=== PATIENT | female | born 1960 | race Caucasian/White ===

== ENCOUNTER 2017-08-28 12:32 | Emergency (ER) | payer OTHER ==
[2017-08-28 12:37] VITALS: BP 146/96; PULSE 60; TEMP 97.9
[2017-08-28] MEDS ORDERED: methylPREDNISolone NA SUCC 125 MG/2 ML VIAL IVPUSH ONE (12:49)
--- NOTE | 2017-08-28 12:53 | PDOC ---
History of Present Illness - General Chief Complaint: Allergic Reaction Stated Complaint: ALLERGIC REACTION Time Seen by Provider: 08/28/17 12:53 Past History - Past Medical History Allergies/Adverse Reactions: Allergies Allergy/AdvReac Type Severity Reaction Status Date / Time Iodinated Contrast- Oral and Allergy Verified 08/28/17 12:33 IV Dye Home Medications: Ambulatory Orders Prednisone [Prednisone 50 MG TABLETS] 50 mg PO DAILY #3 tablet 08/28/17 COPD: No Diabetes: Yes HTN: Yes - Suicide/Smoking/Psychosocial Hx Smoking History: Never smoked Have you smoked in the past 12 months: No Number of Cigarettes Smoked Daily: 20 Information on smoking cessation initiated: Yes 'Breaking Loose' booklet given: 08/28/17 Hx Alcohol Use: No Drug/Substance Use Hx: No Substance Use Type: None *Physical Exam - Vital Signs Last Vital Signs Temp Pulse Resp BP Pulse Ox 97.9 F 60 18 146/96 100 08/28/17 12:34 08/28/17 12:34 08/28/17 12:34 08/28/17 12:34 08/28/17 12:34 ED Treatment Course - Medications Given in the ED: ED Medications Discontinued Medications Generic Name Dose Route Start Last Admin Trade Name Pily PRN Reason Stop Dose Admin Diphenhydramine HCl 50 mg 08/28/17 12:48 08/28/17 12:49 Benadryl Injection - IVPB 08/28/17 12:49 50 mg NOW ONE Administration Methylprednisolone Sodium Succinate 125 mg 08/28/17 12:49 08/28/17 12:49 Solu-Medrol - IVPUSH 08/28/17 12:50 125 mg NOW ONE Administration *DC/Admit/Observation/Transfer Diagnosis at time of Disposition: Allergic reaction Qualifiers: Encounter type: initial encounter Qualified Code(s): T78.40XA - Allergy, unspecified, initial encounter - Discharge Dispostion Disposition: HOME Condition at time of disposition: Improved Admit: No - Prescriptions Prescriptions: Prednisone [Prednisone 50 MG TABLETS] 50 mg PO DAILY #3 tablet - Referrals - Patient Instructions Additional Instructions: You had an allergic reaction to the contrast dye. Please tell them in the future before receiving IV contrast that you have an allergy. Please take your medicine for the next three days. Your sugars may be high on the steroids. Please return if you have new or worsening symptoms. - Post Discharge Activity
--- NOTE | 2017-08-28 13:08 | PDOC ---
Attending Attestation - HPI HPI: 08/28/17 14:26 Patient is a 56 year old female with a significant past medical history of Diabetes, who presents to the ED with complaints of welts s/p allergic reaction. Patient reports going in for abdominal CT with contrast when she began to have an allergic reaction to the PO contrast. Patient states he began to become itchy as well as develop welts on her arms bilaterally. Solumedrol, and benadryl. Patient is here for revaluation of allergic reaction. Patient states CT scan was for colonoscopy procedure. Denies fever, chills. Denies nausea, vomiting. Denies any other symptoms. Allergies: Iodinated contrast. Social history: No smokings, No alcohol, No illicit drugs. Surgical history: None PMD: None - Physicial Exam PE: 08/28/17 14:26 Vitals: Triage Vital signs reviewed General Appearance: no acute distress, well nourished well developed Chest Wall: Nontender Cardiac: Regular rate and rhythym, no murmurs, no rubs, no gallops Lungs: Clear to auscultation bilateral, good air movement bilaterally Abdomen: Soft, non distended, normal bowel sounds, non tender to palpation Extremities: Full range of motion to all extremities, no cyanosis, clubbing, or edema Skin: +Urticarial rash Warm and dry, no petechiae Neuro: AOX3; Cranial Nerves 2-12 grossly intact, Strength intact to all extremities, Sensation intact to all extremities, gait normal Psych: Normal mood, normal affect - Medical Decision Making 08/28/17 14:27 Documentation prepared by Asad Rivers, acting as medical education manager for Edmond Camp MD, MD/DO. <Asad Rivers - Last Filed: 08/28/17 14:26> - Resident Resident Name: Jenny Curtis - ED Attending Attestation I have performed the following: I have examined & evaluated the patient, The case was reviewed & discussed with the resident, I agree w/resident's findings & plan, Exceptions are as noted - Medical Decision Making 08/28/17 13:26 Well-appearing no apparent distress history and examination consistent with mild urticaria reaction to IV contrast. Upon arrival to the ED patient given Benadryl slight Medrol feeling much better no respiratory involvement. We'll observe and reassess. 08/28/17 16:26 Reevaluation:'s itching and urticaria resolved after Benadryl Solu-Medrol no respiratory distress Patient will be discharged with 3 day course of prednisone Benadryl and follow- up with her primary care provider Findings, the need for follow-up, strict return instructions discussed with patient. <Edmond Camp - Last Filed: 08/28/17 16:26>
--- NOTE | 2017-08-31 11:33 | EKG ---
Test Reason : Blood Pressure : / mmHG Vent. Rate : 055 BPM Atrial Rate : 055 BPM P-R Int : 136 ms QRS Dur : 070 ms QT Int : 436 ms P-R-T Axes : 056 020 022 degrees QTc Int : 417 ms SINUS BRADYCARDIA LOW VOLTAGE QRS CANNOT RULE OUT ANTERIOR INFARCT , AGE UNDETERMINED ABNORMAL ECG WHEN COMPARED WITH ECG OF 25-APR-2017 14:44, SINUS RHYTHM HAS REPLACED ELECTRONIC VENTRICULAR PACEMAKER Confirmed by ANTHONY ORTIZ, JOSE ([id number]) on 08/31/2017 11:33:21 AM Referred By: Confirmed By:JOSE CRUZ MD
== END 2017-08-28 14:24 | disposition home or self-care (01) ==
LOC: JER 12:32
PROC: 3E033GC Introduction of Other Therapeutic Substance into Peripheral Vein, Percutaneous Approach (ICD-10-PCS; principal; 2017-08-28)
DX: T78.40XA Allergy, unspecified, initial encounter (principal); I10 Essential (primary) hypertension; E11.9 Type 2 diabetes mellitus without complications; Z87.891 Personal history of nicotine dependence
CPT/HCPCS: 93005; 93010; 96374; 96375; 99282-25

== ENCOUNTER 2018-08-17 22:28 | Emergency (ER) | payer OTHER ==
[2018-08-17 22:34] VITALS: BMI 28.5
--- NOTE | 2018-08-17 22:59 | PDOC ---
History of Present Illness - General Chief Complaint: Blood Pressure Problem Stated Complaint: BLOOD PRESSURE PROBLEM Time Seen by Provider: 08/17/18 22:59 Past History - Past Medical History Allergies/Adverse Reactions: Allergies Allergy/AdvReac Type Severity Reaction Status Date / Time Iodinated Contrast- Oral and Allergy Verified 08/17/18 22:32 IV Dye Home Medications: Ambulatory Orders Prednisone [Prednisone 50 MG TABLETS] 50 mg PO DAILY #3 tablet 08/28/17 COPD: No Diabetes: Yes HTN: Yes - Suicide/Smoking/Psychosocial Hx Smoking History: Current every day smoker Have you smoked in the past 12 months: No Number of Cigarettes Smoked Daily: 20 Information on smoking cessation initiated: No 'Breaking Loose' booklet given: 08/28/17 Hx Alcohol Use: No Drug/Substance Use Hx: No Substance Use Type: None *Physical Exam - Vital Signs Last Vital Signs Temp Pulse Resp BP Pulse Ox 98.7 F 92 H 18 173/84 H 99 08/17/18 22:32 08/17/18 22:32 08/17/18 22:32 08/17/18 22:32 08/17/18 22:32 Moderate Sedation - Procedure Monitoring Vital Signs: Procedure Monitoring Vital Signs Temperature 98.7 F 08/17/18 22:32 Pulse Rate 92 H 08/17/18 22:32 Respiratory Rate 18 08/17/18 22:32 Blood Pressure 173/84 H 08/17/18 22:32 O2 Sat by Pulse Oximetry (%) 99 08/17/18 22:32 *DC/Admit/Observation/Transfer - Referrals Referrals: Reji Ferrell MD [Primary Care Provider] - - Patient Instructions - Post Discharge Activity
[2018-08-17] MEDS ORDERED: ACETAMINOPHEN 1000 MG/100 ML VIAL (NON FORMULARY) IVPB ONE (23:32)
[2018-08-17] MEDS ORDERED: METOCLOPRAMIDE HCL INJECTION 10 MG/2 ML VIAL IVPUSH ONE (23:32)
--- NOTE | 2018-08-17 23:32 | PDOC ---
Attending Attestation - Resident Resident Name: Soni Vyas - ED Attending Attestation I have performed the following: I have examined & evaluated the patient, The case was reviewed & discussed with the resident, I agree w/resident's findings & plan, Exceptions are as noted - HPI HPI: 08/18/18 00:43 57yo female with hx of DM and HTN with cp from her back to her front since yesterday, elevated BP tonight, and a posterior headache. Pt denies neck pain. No pleuritic component to the pain. Pt is a smoker. Pt denies f/c. No rhinorrhea or sore throat. No abd pain. No n/v/d. No dysuria. Pt denies paresthesias. No blurred vision or change in vision. No other complaints. - Physicial Exam PE: 08/18/18 00:44 Gen: aaox3, appears uncomfortable, hypertensive heent: PERRL, EOMI, MMM neck: supple heart: +s1s2 reg lungs: cta b/l abd: soft, nt/nd +bs Ext: no c/c/e neuro: cn ii-xii grossly intact, no focal neuro deficits, muscle strenght 5/5 UE and LE, sensation intact - Medical Decision Making 08/17/18 23:31 I, Dr. Tiny Roldan, DO, attest that this document has been prepared under my direction and personally reviewed by me in its entirety. I further attest, that it accurately reflects all work, treatment, procedures and medical decision -making performed by me. 08/18/18 00:46 a/p: 57yo female with elevated BP tonight and headache/chest pain -concern for ACS - will send trops, ekg, cxr -will give asa -low suspicion for dissection given equal BP in both arms -will obtain cxr to eval mediastinal size -will obtain head ct given elevated BP and headache, though neuro intact -will medicate -will monitor and reassess 08/18/18 01:55 trop negative mildly elevated TSH, free T4 sent pending head ct and cxr Heart Score/ECG Review - ECG Intrepretation Comment:: 08/18/18 00:45 sinus at 62, nl axis, nl interval, t wave inversions III that are nonspecific, no acute st/t wave findings
[2018-08-17] MEDS ORDERED: METOCLOPRAMIDE HCL INJECTION 10 MG/2 ML VIAL ONE (23:43)
[2018-08-17] MEDS ORDERED: ACETAMINOPHEN INJECTION 100 ML IVPB ONE (23:43)
--- NOTE | 2018-08-17 23:43 | PDOC ---
History of Present Illness - General Chief Complaint: Blood Pressure Problem Stated Complaint: BLOOD PRESSURE PROBLEM Time Seen by Provider: 08/17/18 22:59 - History of Present Illness Initial Comments: 08/17/18 23:41 The patient is a 57 year old female with a PMH of HTN, DMII that presented to the hospital complaining of headache and back pain radiating to her chest. The patient checked her BP in the evening at home and systolic was in 160s. Usually it is 130-140. She started experiencing headache that improved here in ED. It was localized to the back of her head. She is also complaining of upper back pain that started yesterday, sharp, radiating to mid chest, worse with lying flat and associated with heartburn. She denies SOB, palpitations, dizziness, weakness, vision problems, numbness, tingling. She denies dyspnea with exertion. She doesn't have a watch inspector final movement but her is waiting for approval to get ECHO that was recommended by hear PCP. The patient admits to non compliance with medications. Past History - Past Medical History Allergies/Adverse Reactions: Allergies Allergy/AdvReac Type Severity Reaction Status Date / Time Iodinated Contrast- Oral and Allergy Verified 08/17/18 22:32 IV Dye Home Medications: Ambulatory Orders Prednisone [Prednisone 50 MG TABLETS] 50 mg PO DAILY #3 tablet 08/28/17 COPD: No Diabetes: Yes HTN: Yes - Suicide/Smoking/Psychosocial Hx Smoking History: Current every day smoker Have you smoked in the past 12 months: No Number of Cigarettes Smoked Daily: 20 Information on smoking cessation initiated: No 'Breaking Loose' booklet given: 08/28/17 Hx Alcohol Use: No Drug/Substance Use Hx: No Substance Use Type: None Review of Systems - Review of Systems Able to Perform ROS?: Yes Constitutional: No: Symptoms Reported HEENTM: No: Symptoms Reported, Blurred Vision, Double Vision Respiratory: No: Symptoms reported, Cough Cardiac (ROS): Yes: See HPI. No: Symptoms Reported, Edema, Irregular Heart Rate , Lightheadedness, Palpitations, Syncope, Chest Tightness ABD/GI: No: Symptoms Reported : No: Symptoms Reported Musculoskeletal: Yes: Symptoms Reported, Back Pain Neurological: Yes: Symptoms reported, Headache *Physical Exam - Vital Signs Last Vital Signs Temp Pulse Resp BP Pulse Ox 97.4 F L 67 18 132/88 97 08/18/18 00:36 08/18/18 00:36 08/18/18 00:36 08/18/18 00:36 08/18/18 00:36 - Physical Exam General Appearance: Yes: Nourished, Appropriately Dressed HEENT: positive: EOMI, MARIYA Respiratory/Chest: positive: Lungs Clear, Normal Breath Sounds Cardiovascular: positive: Regular Rhythm, Regular Rate, S1, S2. negative: Murmur Musculoskeletal: positive: Normal Inspection. negative: Vertebral Tenderness Extremity: positive: Normal Inspection, Normal Range of Motion Neurologic: positive: crossing tender II-XII NML intact, Fully Oriented, Alert, Normal Response, Motor Strength 5/5. negative: Facial Droop, Numbness Heart Score/ECG Review - History History: Slightly suspicious - Age Age: 45-65 - Risk Factors Risk Factors Heart Score: Yes Hx Hypertension, Yes Hx Diabetes Moderate Sedation - Procedure Monitoring Vital Signs: Procedure Monitoring Vital Signs Temperature 97.4 F L 08/18/18 00:36 Pulse Rate 67 08/18/18 00:36 Respiratory Rate 18 08/18/18 00:36 Blood Pressure 132/88 08/18/18 00:36 O2 Sat by Pulse Oximetry (%) 97 08/18/18 00:36 ED Treatment Course - LABORATORY CBC & Chemistry Diagram: 08/18/18 00:00 08/18/18 00:00 - ADDITIONAL ORDERS Additional order review: Laboratory Results 08/18/18 08/18/18 08/18/18 00:00 00:00 00:00 PT with INR INR PTT (Actin FS) Sodium 136 Potassium 3.9 Chloride 101 Carbon Dioxide 27 Anion Gap 9 BUN 18 Creatinine 0.9 Creat Clearance w eGFR > 60 Random Glucose 139 H Calcium 9.7 Magnesium 1.9 Total Bilirubin 0.3 AST 19 ALT 29 Alkaline Phosphatase 72 Creatine Kinase 101 Troponin I < 0.02 B-Natriuretic Peptide 142.1 H Total Protein 8.2 Albumin 4.4 TSH 8.23 H Free T4 0.97 Urine Color Urine Appearance Urine pH Ur Specific [place] Urine Protein Urine Glucose (UA) Urine Ketones Urine Blood Urine Nitrite Urine Bilirubin Urine Urobilinogen Ur Leukocyte Esterase Urine WBC (Auto) Urine RBC (Auto) Ur Epithelial Cells Urine Bacteria Urine Mucus 08/18/18 08/17/18 00:00 23:37 PT with INR 12.00 INR 1.02 PTT (Actin FS) 30.4 Sodium Potassium Chloride Carbon Dioxide Anion Gap BUN Creatinine Creat Clearance w eGFR Random Glucose Calcium Magnesium Total Bilirubin AST ALT Alkaline Phosphatase Creatine Kinase Troponin I B-Natriuretic Peptide Total Protein Albumin TSH Free T4 Urine Color Straw Urine Appearance Clear Urine pH 6.0 Ur Specific [place] 1.006 L Urine Protein Negative Urine Glucose (UA) Negative Urine Ketones Negative Urine Blood Negative Urine Nitrite Negative Urine Bilirubin Negative Urine Urobilinogen Negative Ur Leukocyte Esterase 1+ H Urine WBC (Auto) 7 Urine RBC (Auto) 1 Ur Epithelial Cells Rare Urine Bacteria Rare Urine Mucus Rare 08/18/18 00:00 RBC 4.33 MCV 89.6 MCHC 36.1 H RDW 12.5 MPV 8.3 Neutrophils % 43.6 Lymphocytes % 46.9 H Monocytes % 5.6 Eosinophils % 3.7 Basophils % 0.2 - Medications Given in the ED: ED Medications Discontinued Medications Generic Name Dose Route Start Last Admin Trade Name Freq PRN Reason Stop Dose Admin Acetaminophen 1,000 mg 08/17/18 23:32 08/18/18 00:18 Ofirmev Injection - IVPB 08/17/18 23:33 1,000 mg ONCE ONE Administration Famotidine/Sodium Chloride 20 mg in 50 mls @ 100 mls/hr 08/18/18 00:17 01:29 Pepcid 20 Mg Premixed Ivpb - IVPB 08/18/18 00:46 100 mls/hr ONCE ONE Administration Metoclopramide HCl 10 mg 08/17/18 23:32 08/18/18 00:18 Reglan Injection - IVPUSH 08/17/18 23:33 10 mg ONCE ONE Administration Medical Decision Making - Medical Decision Making 08/18/18 00:53 The patient presented with elevated BP, headache and back pain radiating to her chest. Differectial diagnosis includes: stroke, ACS, dissection of aorta. We ordered CBC, CMP, cardiac profile, EKG, CXR. We will also repeat BP. 08/18/18 00:56 BP normalized without medications; 132/88, HR 67. Waiting for EKG 08/18/18 02:32 TSH elevated, 8.23, normal T4, will recommend f/u as outpatient. 08/18/18 03:02 CT head negative for acute pathology. The patient will be DC home with recommendation to f/u with her PCP next week as well as Psychiatry for anxiety. *DC/Admit/Observation/Transfer Diagnosis at time of Disposition: Uncontrolled hypertension - Discharge Dispostion Disposition: HOME Condition at time of disposition: Stable - Referrals Referrals: Reji Ferrell MD [Primary Care Provider] - Andrey Carrillo NP [Nurse Practitioner] - - Patient Instructions Printed Discharge Instructions: DI for High Blood Pressure, How to Monitor Your Blood Pressure at Home Additional Instructions: You were evaluate in emergency room for elevated blood pressure and chest pain. Your results (labwork, CT of the head) were negative. Continue to take your home medications everyday and check your blood pressure at home. Please follow up with your primary care physician and Psychiatrist. If you have severe chest pain, headache, weakness or worsening of any of your symptoms, please come back to Emergency Room as soon as possible. - Post Discharge Activity
[2018-08-17 23:49] LABS: URINE APPEARANCE CLEAR; URINE BILIRUBIN NEGATIVE (<2.0 mg/dL); URINE COLOR STRAW; URINE GLUCOSE (UA) NEGATIVE (NEGATIVE); URINE KETONE NEGATIVE (NEGATIVE); URINE LEUK ESTERASE 1+ (NEGATIVE); URINE NITRITE NEGATIVE (NEGATIVE); URINE PROTEIN NEGATIVE (NEGATIVE); URINE UROBILINOGEN NEGATIVE mg/dL (0.2-1.0)
[2018-08-17 23:51] LABS: EPI CELLS RARE /HPF (FEW); URINE BACTERIA RARE /hpf (NONE SEEN); URINE MUCUS RARE
[2018-08-18] MEDS ORDERED: FAMOTIDINE 20 MG/50 ML IVPB 20 MG/50 ML MG IVPB ONE ×2 (00:17→01:37)
[2018-08-18 01:01] LABS: INR 1.02 (0.83-1.09)
[2018-08-18 01:03] LABS: ACTIVATED PTT 30.4 SECONDS (25.2-36.5)
[2018-08-18 01:18] LABS: ALBUMIN 4.4 g/dl (3.4-5.0); ALK PHOS 72 U/L (45-117); ANION GAP 9 MMOL/L (8-16); BILIRUBIN,TOTAL 0.3 mg/dL (0.2-1); BLOOD UREA NITROGEN 18 mg/dL (7-18); CALCIUM 9.7 mg/dL (8.5-10.1); CHLORIDE 101 mmol/L (98-107); CO2 27 mmol/L (21-32); CREATININE 0.9 mg/dL (0.55-1.3); GLUCOSE,RANDOM 139 mg/dL (74-106); MAGNESIUM 1.9 mg/dL (1.8-2.4); POTASSIUM 3.9 mmol/L (3.5-5.1); SGOT/AST 19 U/L (15-37); SGPT/ALT 29 U/L (13-61); SODIUM 136 mmol/L (136-145); TOT PROT 8.2 g/dl (6.4-8.2)
[2018-08-18 01:56] LABS: BASO % 0.2 % (0-2.0); EOS % 3.7 % (0-4.5); HEMATOCRIT 38.8 % (32.4-45.2); LYMPH % 46.9 % (8-40); MCH 32.4 pg (25.7-33.7); MCHC 36.1 g/dl (32.0-36.0); MEAN CELL VOLUME 89.6 fl (80-96); MEAN PLT VOLUME 8.3 fl (7.5-11.1); MONO % 5.6 % (3.8-10.2); NEUT % 43.6 % (42.8-82.8); PLATELET COUNT 305 K/MM3 (134-434); RBC 4.33 M/mm3 (3.60-5.2); RDW 12.5 % (11.6-15.6); WHITE BLOOD COUNT 7.7 K/mm3 (4.0-10.0)
--- NOTE | 2018-08-18 03:02 | PDOC ---
*Physical Exam - Vital Signs Last Vital Signs Temp Pulse Resp BP Pulse Ox 97.4 F L 67 18 132/88 97 08/18/18 00:36 08/18/18 00:36 08/18/18 00:36 08/18/18 00:36 08/18/18 00:36 ED Treatment Course - LABORATORY CBC & Chemistry Diagram: 08/18/18 00:00 08/18/18 00:00 - ADDITIONAL ORDERS Additional order review: Laboratory Results 08/18/18 08/18/18 08/18/18 00:00 00:00 00:00 PT with INR INR PTT (Actin FS) Sodium 136 Potassium 3.9 Chloride 101 Carbon Dioxide 27 Anion Gap 9 BUN 18 Creatinine 0.9 Creat Clearance w eGFR > 60 Random Glucose 139 H Calcium 9.7 Magnesium 1.9 Total Bilirubin 0.3 AST 19 ALT 29 Alkaline Phosphatase 72 Creatine Kinase 101 Troponin I < 0.02 B-Natriuretic Peptide 142.1 H Total Protein 8.2 Albumin 4.4 TSH 8.23 H Free T4 0.97 Urine Color Urine Appearance Urine pH Ur Specific [place] Urine Protein Urine Glucose (UA) Urine Ketones Urine Blood Urine Nitrite Urine Bilirubin Urine Urobilinogen Ur Leukocyte Esterase Urine WBC (Auto) Urine RBC (Auto) Ur Epithelial Cells Urine Bacteria Urine Mucus 08/18/18 08/17/18 00:00 23:37 PT with INR 12.00 INR 1.02 PTT (Actin FS) 30.4 Sodium Potassium Chloride Carbon Dioxide Anion Gap BUN Creatinine Creat Clearance w eGFR Random Glucose Calcium Magnesium Total Bilirubin AST ALT Alkaline Phosphatase Creatine Kinase Troponin I B-Natriuretic Peptide Total Protein Albumin TSH Free T4 Urine Color Straw Urine Appearance Clear Urine pH 6.0 Ur Specific [place] 1.006 L Urine Protein Negative Urine Glucose (UA) Negative Urine Ketones Negative Urine Blood Negative Urine Nitrite Negative Urine Bilirubin Negative Urine Urobilinogen Negative Ur Leukocyte Esterase 1+ H Urine WBC (Auto) 7 Urine RBC (Auto) 1 Ur Epithelial Cells Rare Urine Bacteria Rare Urine Mucus Rare 08/18/18 00:00 RBC 4.33 MCV 89.6 MCHC 36.1 H RDW 12.5 MPV 8.3 Neutrophils % 43.6 Lymphocytes % 46.9 H Monocytes % 5.6 Eosinophils % 3.7 Basophils % 0.2 - Medications Given in the ED: ED Medications Discontinued Medications Generic Name Dose Route Start Last Admin Trade Name Freq PRN Reason Stop Dose Admin Acetaminophen 1,000 mg 11/30/18 23:32 08/18/18 00:18 Ofirmev Injection - IVPB 08/17/18 23:33 1,000 mg ONCE ONE Administration Famotidine/Sodium Chloride 20 mg in 50 mls @ 100 mls/hr 08/18/18 00:17 01:29 Pepcid 20 Mg Premixed Ivpb - IVPB 08/18/18 00:46 100 mls/hr ONCE ONE Administration Metoclopramide HCl 10 mg 08/17/18 23:32 08/18/18 00:18 Reglan Injection - IVPUSH 08/17/18 23:33 10 mg ONCE ONE Administration Medical Decision Making - Medical Decision Making 08/18/18 03:01 Received pt on signout. She is to be reevaluated and discharged home if stable. Patient Name: SHONA SANCHEZ THIS IS A PRELIMINARY REPORT FROM [facility] DATE OF SERVICE: 2018-08-18 02:07:37 IMAGES: 133 EXAM: HEAD CT WITHOUT CONTRAST HISTORY: 57-year-old female headache. COMPARISON: None. FINDINGS: No acute intracranial hemorrhage mass effect or midline shift. The ventricles sulci and basilar cisterns have a normal size and contour. Mild nonspecific periventricular predominant low density throughout the deep white matter is most likely due to mild small vessel ischemic white matter disease. Mild mineralization of the bilateral basal ganglia. Frontal scalp calcified granuloma. The sinuses and mastoid air cells are clear within the [id number]. The calvarium is intact. IMPRESSION No acute intracranial hemorrhage mass effect or midline shift. Mild nonspecific periventricular predominant low density throughout the deep white matter is most likely due to mild small vessel ischemic white matter disease. Mild mineralization of the bilateral basal ganglia. Frontal scalp calcified granuloma. *DC/Admit/Observation/Transfer Diagnosis at time of Disposition: Uncontrolled hypertension - Discharge Dispostion Disposition: HOME Condition at time of disposition: Stable Decision to Admit order: No - Referrals Referrals: Andrey Carrillo NP [Nurse Practitioner] - Reji Ferrell MD [Primary Care Provider] - - Patient Instructions Printed Discharge Instructions: DI for High Blood Pressure, How to Monitor Your Blood Pressure at Home Additional Instructions: You were evaluate in emergency room for elevated blood pressure and chest pain. Your results (labwork, CT of the head) were negative. Continue to take your home medications everyday and check your blood pressure at home. Please follow up with your primary care physician and Psychiatrist. If you have severe chest pain, headache, weakness or worsening of any of your symptoms, please come back to Emergency Room as soon as possible. - Post Discharge Activity
[2018-08-18 03:54] VITALS: BP 130/82; PULSE 81; TEMP 98.3
--- NOTE | 2018-08-18 17:12 | EKG ---
Test Reason : Blood Pressure : / mmHG Vent. Rate : 062 BPM Atrial Rate : 062 BPM P-R Int : 128 ms QRS Dur : 070 ms QT Int : 414 ms P-R-T Axes : 033 008 015 degrees QTc Int : 420 ms NORMAL SINUS RHYTHM NORMAL ECG WHEN COMPARED WITH ECG OF 28-AUG-2017 13:15, NO SIGNIFICANT CHANGE WAS FOUND Confirmed by MD SIDNEY, TAMIE ([id number]) on 08/18/2018 5:11:52 PM Referred By: Confirmed By:TAMIE LITTLE MD
== END 2018-08-18 03:50 | disposition home or self-care (01) ==
LOC: JER 22:28
PROC: 3E033GC Introduction of Other Therapeutic Substance into Peripheral Vein, Percutaneous Approach (ICD-10-PCS; principal; 2018-08-17)
PROC: 3E033GC Introduction of Other Therapeutic Substance into Peripheral Vein, Percutaneous Approach (ICD-10-PCS; 2018-08-17)
PROC: 3E033NZ Introduction of Analgesics, Hypnotics, Sedatives into Peripheral Vein, Percutaneous Approach (ICD-10-PCS; 2018-08-17)
DX: I10 Essential (primary) hypertension (principal); E11.9 Type 2 diabetes mellitus without complications; Z79.84 Long term (current) use of oral hypoglycemic drugs
CPT/HCPCS: 36415; 70450-TC; 71046-TC-FY; 80053; 81003; 81015; 82550; 83735; 83880; 84439; 84443; 84484; 85025; 85610; 85730; 93005; 93010; 96365; 96375; 99282-25; J0131

== ENCOUNTER 2018-08-23 00:23 | Emergency (ER) | payer OTHER ==
[2018-08-23 00:38] VITALS: PULSE 75; TEMP 98; BMI 28.5
[2018-08-23 01:01] VITALS: BP 134/76
[2018-08-23] MEDS ORDERED: ACETAMINOPHEN 325 MG TABLET (FP) PO ONE (01:01)
--- NOTE | 2018-08-23 01:02 | PDOC ---
Attending Attestation - Resident Resident Name: ZiyadeneidaMalachi - ED Attending Attestation I have performed the following: I have examined & evaluated the patient, The case was reviewed & discussed with the resident, I agree w/resident's findings & plan, Exceptions are as noted - HPI HPI: 08/23/18 03:19 Here with headache and BP increased from her baseline - Physicial Exam PE: 08/23/18 03:24 GENERAL: Well-appearing, well-nourished. No apparent distress. HEENT: Normocephalic, atraumatic. PERRL, EOM intact. CARDIOVASCULAR: Normal S1, S2. Regular rate and rhythm. PULMONARY: Clear to auscultation bilaterally. ABDOMEN: Soft, non-distended, non-tender. EXTREMITIES: Normal ROM in all four extremities. No gross deformities. SKIN: Warm, dry. No rash NEUROLOGICAL: No focal neurological deficits. - Medical Decision Making 08/23/18 03:24 LIU in context of incr BP, BP measurments in ED unconcerning, differential BP in L vs R UE no chest pain, CXR unremarkable F/u labs to r/o end organ damage 08/23/18 03:27 Labs unremarkable, LIU resolved w/ analgesia DC home
[2018-08-23 01:48] LABS: BASO % 0.4 % (0-2.0); EOS % 3.7 % (0-4.5); HEMATOCRIT 37.9 % (32.4-45.2); HEMOGLOBIN 13.7 GM/dL (10.7-15.3); LYMPH % 51.7 % (8-40); MCH 32.1 pg (25.7-33.7); MCHC 36.2 g/dl (32.0-36.0); MEAN CELL VOLUME 88.7 fl (80-96); NEUT % 36.2 % (42.8-82.8); PLATELET COUNT 316 K/MM3 (134-434); RBC 4.27 M/mm3 (3.60-5.2); RDW 12.3 % (11.6-15.6); WHITE BLOOD COUNT 7.2 K/mm3 (4.0-10.0)
[2018-08-23] MEDS ORDERED: RANITIDINE HCL 150 MG TABLET (FP) PO ONE (01:48)
[2018-08-23] MEDS ORDERED: ACETAMINOPHEN 325 MG TABLET (FP) ONE (01:52)
[2018-08-23] MEDS ORDERED: RANITIDINE HCL 150 MG TABLET (FP) ONE (01:53)
[2018-08-23 01:58] LABS: INR 1.02 (0.83-1.09)
[2018-08-23 02:16] LABS: ALBUMIN 4.2 g/dl (3.4-5.0); ALK PHOS 69 U/L (45-117); ANION GAP 7 MMOL/L (8-16); BILIRUBIN,TOTAL 0.4 mg/dL (0.2-1); BLOOD UREA NITROGEN 13 mg/dL (7-18); CALCIUM 9.5 mg/dL (8.5-10.1); CHLORIDE 98 mmol/L (98-107); CO2 31 mmol/L (21-32); CREATININE 0.6 mg/dL (0.55-1.3); GLUCOSE,RANDOM 128 mg/dL (74-106); MAGNESIUM 2.4 mg/dL (1.8-2.4); POTASSIUM 3.6 mmol/L (3.5-5.1); SGOT/AST 19 U/L (15-37); SGPT/ALT 33 U/L (13-61); SODIUM 136 mmol/L (136-145); TOT PROT 7.8 g/dl (6.4-8.2)
--- NOTE | 2018-08-23 02:52 | PDOC ---
History of Present Illness - General Chief Complaint: Blood Pressure Problem Stated Complaint: HIGH BP Time Seen by Provider: 08/23/18 00:34 History Source: Patient Exam Limitations: No Limitations - History of Present Illness Initial Comments: 08/23/18 03:15 The patient is a 57F with a PMH of HTN and DM who presents to the ER with complaints of headache and high BP readings at home. The patient admits to noncompliance with her medications. She states that she felt a headache earlier today, which is pressure-like and wraps around her entire head. She took her BP and it was 180's/100's. She took another dose of her BP meds for a total of two doses today. She still admits to her headache but denies changes in vision, CP, SOB, fever, chills, nausea, vomiting, numbness, tingling, and weakness. Past History - Past Medical History Allergies/Adverse Reactions: Allergies Allergy/AdvReac Type Severity Reaction Status Date / Time Iodinated Contrast- Oral and Allergy Verified 08/23/18 00:34 IV Dye Home Medications: Ambulatory Orders NK [No Known Home Medication] 08/23/18 COPD: No Diabetes: Yes HTN: Yes - Immunization History Immunization Up to Date: Yes - Suicide/Smoking/Psychosocial Hx Smoking History: Never smoked Have you smoked in the past 12 months: No Number of Cigarettes Smoked Daily: 20 Information on smoking cessation initiated: No 'Breaking Loose' booklet given: 08/28/17 Hx Alcohol Use: No Drug/Substance Use Hx: No Substance Use Type: None Review of Systems - Review of Systems Able to Perform ROS?: Yes Comments:: 08/23/18 03:53 GENERAL/CONSTITUTIONAL: No fever or chills. No weakness. HEAD, EYES, EARS, NOSE AND THROAT: No change in vision. No ear pain or discharge. No sore throat. CARDIOVASCULAR: No chest pain, palpitations, or lightheadedness. RESPIRATORY: No cough, wheezing, shortness of breath, or hemoptysis. GASTROINTESTINAL: No nausea, vomiting, diarrhea, constipation, or abdominal pain. GENITOURINARY: No dysuria, frequency, hematuria, or change in urination. MUSCULOSKELETAL: No joint or muscle swelling or pain. No neck or back pain. SKIN: No rash or lesions. NEUROLOGIC: Positive for headache. No numbness, tingling, focal weakness, loss of consciousness, or change in strength/sensation. Is the patient limited Malian proficient: No *Physical Exam - Vital Signs Last Vital Signs Temp Pulse Resp BP Pulse Ox 98.0 F 75 18 154/83 99 08/23/18 00:35 18 00:35 12 00:35 08/23/18 01:00 08/23/18 00:35 - Physical Exam Comments: 08/23/18 03:53 GENERAL: Well developed, well nourished. Awake and alert. No acute distress. HEENT: Normocephalic, atraumatic. Hearing grossly normal. Moist mucous membranes. PERRLA, EOMI. No conjunctival pallor. NECK: Supple. Full ROM. No JVD. CARDIOVASCULAR: Regular rate and rhythm. No murmurs, rubs, or gallops. PULMONARY: No evidence of respiratory distress. Lungs clear to auscultation bilaterally. No wheezing, rales or rhonchi. ABDOMINAL: Soft. Non-tender. Non-distended. No rebound or guarding. GENITOURINARY: No CVA tenderness bilaterally. MUSCULOSKELETAL: Normal range of motion at all joints. No bony deformities or tenderness. EXTREMITIES: No cyanosis. No clubbing. No edema. No calf tenderness or swelling. SKIN: Warm and dry. Normal capillary refill. No rashes. No jaundice. NEUROLOGICAL: Alert, awake, appropriate. Cranial nerves 2-12 grossly intact. Normal speech. Gait is normal without ataxia. PSYCHIATRIC: Cooperative. Good eye contact. Appropriate mood and affect. Moderate Sedation - Procedure Monitoring Vital Signs: Procedure Monitoring Vital Signs Temperature 98.0 F 08/23/18 00:35 Pulse Rate 75 08/23/18 00:35 Respiratory Rate 18 08/23/18 00:35 Blood Pressure 154/83 08/23/18 01:00 O2 Sat by Pulse Oximetry (%) 99 08/23/18 00:35 ED Treatment Course - LABORATORY CBC & Chemistry Diagram: 08/23/18 01:01 08/23/18 01:24 - ADDITIONAL ORDERS Additional order review: Laboratory Results 08/23/18 08/23/18 01:24 01:24 PT with INR 12.00 INR 1.02 Sodium 136 Potassium 3.6 Chloride 98 Carbon Dioxide 31 Anion Gap 7 L BUN 13 Creatinine 0.6 Creat Clearance w eGFR > 60 Random Glucose 128 H Calcium 9.5 Magnesium 2.4 Total Bilirubin 0.4 AST 19 ALT 33 Alkaline Phosphatase 69 Creatine Kinase 73 Troponin I < 0.02 Total Protein 7.8 Albumin 4.2 08/23/18 01:01 RBC 4.27 MCV 88.7 MCHC 36.2 H RDW 12.3 MPV 8.0 Neutrophils % 36.2 L Lymphocytes % 51.7 H Monocytes % 8.0 Eosinophils % 3.7 Basophils % 0.4 - RADIOLOGY Radiology Studies Ordered: Category Date Time Status CHEST PA & LAT [RAD] Stat Radiology 08/23/18 01:01 Taken - Medications Given in the ED: ED Medications Discontinued Medications Generic Name Dose Route Start Last Admin Trade Name Donovanq PRN Reason Stop Dose Admin Acetaminophen 650 mg 08/23/18 01:01 08/23/18 01:56 Tylenol - PO 08/23/18 01:02 650 mg ONCE ONE Administration Ranitidine HCl 150 mg 08/23/18 01:48 08/23/18 01:56 Zantac - PO 08/23/18 01:49 150 mg ONCE ONE Administration Medical Decision Making - Medical Decision Making 08/23/18 02:49 The patient is a 57F with a PMH of HTN and DM who presents to the ER with complaints of headache with increased BP. The patient's BP in our facility is 130's/70's. Pt given tylenol for her headache and states she feels much better. I have informed her that she must remain compliant with her BP medications and to quit smoking. She will f/u with her PCP in 1-3 days. *DC/Admit/Observation/Transfer Diagnosis at time of Disposition: Uncontrolled hypertension - Discharge Dispostion Disposition: HOME Condition at time of disposition: Stable Decision to Admit order: No - Referrals Referrals: Reji Ferrell MD [Primary Care Provider] - - Patient Instructions Additional Instructions: Please follow up with your primary care physician in 1-3 days. Please return to the ER if you have any signs or symptoms of chest pain, shortness of breath, uncontrollable fever, chills, nausea, vomiting, numbness, tingling, or weakness in any part of your body, changes in vision, or slurred speech. Please take your medications as prescribed. Please return to the ER if symptoms persist, worsen, or new symptoms arise. - Post Discharge Activity
--- NOTE | 2018-08-23 10:28 | EKG ---
Test Reason : Blood Pressure : / mmHG Vent. Rate : 060 BPM Atrial Rate : 060 BPM P-R Int : 144 ms QRS Dur : 070 ms QT Int : 436 ms P-R-T Axes : 056 026 037 degrees QTc Int : 436 ms NORMAL SINUS RHYTHM NORMAL ECG WHEN COMPARED WITH ECG OF 18-AUG-2018 00:28, NO SIGNIFICANT CHANGE WAS FOUND Confirmed by JOSE CRUZ MD ([id number]) on 08/23/2018 10:28:01 AM Referred By: Confirmed By:JOSE CRUZ MD
== END 2018-08-23 03:02 | disposition home or self-care (01) ==
LOC: JER 00:23
DX: I10 Essential (primary) hypertension (principal); E11.9 Type 2 diabetes mellitus without complications; Z91.14 Patient's other noncompliance with medication regimen
CPT/HCPCS: 36415; 71046-TC-FY; 80053; 82550; 83735; 84484; 85025; 85610; 93005; 93010; 99282-25